=== PATIENT | female | born 1965 | race Asian ===

== ENCOUNTER 2018-09-15 06:49 | Emergency (ER) | payer OTHER ==
[~2018-09-15] VITALS: Ht 152.4 cm; Wt 84.7 kg
[2018-09-15 10:04] VITALS: BP 126/76
== END 2018-09-15 10:06 | disposition home or self-care (01) ==
LOC: ED 07:14
DX: J02.9 Acute pharyngitis, unspecified (principal); I10 Essential (primary) hypertension
CPT/HCPCS: 36415; 80048; 82040; 83605; 85025; 87040; 87081; 87880; 96372; 99284; J0696; J7030